=== PATIENT | female | born 1955 | race Caucasian/White ===

== ENCOUNTER 2022-08-04 15:58 | Emergency (ER) | payer MEDICARE ==
[2022-08-04] MEDS ORDERED: Ketorolac Tromethamine 30 MG/ML VIAL ONE (18:13)
== END 2022-08-04 19:04 | disposition home or self-care (01) ==
LOC: CSHERS 15:58
DX: S22.060A Wedge compression fracture of T7-T8 vertebra, initial encounter for closed fracture (principal); I10 Essential (primary) hypertension; E78.5 Hyperlipidemia, unspecified; E11.9 Type 2 diabetes mellitus without complications; W19.XXXA Unspecified fall, initial encounter
CPT/HCPCS: 72128; 96372; J1885

== ENCOUNTER 2022-10-08 13:00 | Outpatient (CLI) | payer MEDICARE | END 2022-10-08 13:01 | disposition home or self-care (01) | LOC: CSHMRI 13:00 | PROVIDERS: ATTEND Family Medicine | DX: S22.060S Wedge compression fracture of T7-T8 vertebra, sequela (principal) | CPT/HCPCS: 72146 ==